=== PATIENT | male | born 1985 | race African-American/Black ===

== ENCOUNTER 2016-06-22 04:18 | Emergency (ER) | payer OTHER ==
[~2016-06-22] VITALS: Ht 160 cm; Wt 56.1 kg
[2016-06-22 05:27] LABS: HEMATOCRIT 44.3 % (38.0-50.0); MCH 27.1 PG (29.0-34.0); MCHC 34.1 G/DL (30.0-36.0); MCV 79.5 FL (86-99); MEAN PLAT.VOLUME 10.2 uM^3 (9.0-12.4); PLATELET COUNT 335 K/uL (156-360); RBC DIS.WIDTH-SD 36.6 % (39-53); RED BLOOD COUNT 5.57 M/uL (4.00-5.50); WHITE BLOOD COUNT 11.7 K/uL (4.1-10.2)
[2016-06-22 06:20] LABS: CHLORIDE 104 mEq/L (99-109); POTASSIUM 4.3 mEq/L (3.7-5.4); SODIUM 139 mEq/L (136-147)
[2016-06-22 06:22] LABS: GLUCOSE 102 mg/dL (70-99)
[2016-06-22 06:24] LABS: ANION GAP 9 MEQ/L (2-14); TOTAL BILIRUBIN 0.7 mg/dL (0.0-1.0)
[2016-06-22 06:26] LABS: ALKALINE PHOSPHATASE 50 IU/L (3-129); GFR ESTIMATE (CALCULATED) > 59 mL/min/
[2016-06-22 06:27] LABS: UREA NITROGEN (BUN) 11 mg/dL (9-23)
[2016-06-22 06:29] LABS: LIPASE 28 U/L (1.0-51.0)
[2016-06-22] MEDS ORDERED: ZOFRAN8 MG PO (06:59)
[2016-06-22] MEDS ORDERED: CIPRO500 MG PO (06:59)
[2016-06-22 07:15] VITALS: BP 113/62
== END 2016-06-22 07:35 | disposition home or self-care (01) ==
LOC: EME 04:18
PROVIDERS: Emergency Medicine
DX: K52.9 Noninfective gastroenteritis and colitis, unspecified (principal)
CPT/HCPCS: 74177; 80053; 81003; 83690; 85027; 99281; 99284; J2405; J7030